=== PATIENT | female | born 1955 | race Two or more races ===

== ENCOUNTER 2022-06-20 00:33 | Emergency (ER) | payer OTHER ==
[~2022-06-20] VITALS: Ht 157.5 cm; Wt 59.4 kg
[2022-06-20] MEDS ORDERED: VERELAN240 MG (00:42)
[2022-06-20] MEDS ORDERED: ZESTRIL20 MG (00:42)
[2022-06-20] MEDS ORDERED: METFORMIN HCL1000 M2 (00:43)
[2022-06-20] MEDS ORDERED: NEURONTIN300 MG (00:43)
[2022-06-20] MEDS ORDERED: TYLENOL325 MG (00:43)
== END 2022-06-20 11:58 | disposition home or self-care (01) ==
LOC: ER 00:33
DX: R60.0 Localized edema (principal); R07.9 Chest pain, unspecified; E11.40 Type 2 diabetes mellitus with diabetic neuropathy, unspecified; Z79.84 Long term (current) use of oral hypoglycemic drugs; I10 Essential (primary) hypertension